=== PATIENT | female | born 1945 | race Caucasian/White ===

== ENCOUNTER 2017-12-21 07:16 | Day surgery (SDC) | payer MEDICARE, BC ==
[~2017-12-21] VITALS: Ht 160 cm; Wt 77.6 kg
[~2017-12-21 07:16] MED LIST: METF500T4 PO; OLME40TA12 PO; SIMV40TA5 PO; VITAMIN D2 PO
[2017-12-21] MEDS ORDERED: TOBRAMYCIN SULFATE 80MG/2ML 30ML ONE (07:29)
[2017-12-21] MEDS ORDERED: METHYLPREDNISOLONE SOD SUCC 40 MG/ML VIAL ONE (07:29)
[2017-12-21] MEDS ORDERED: CIPROFLOXACIN 0.3% OPHTH SOLN 2.5ML LEFTEYE ONE (08:30)
[2017-12-21] MEDS ORDERED: MIDAZOLAM HCL 2 MG/2 ML VIAL ONE (09:22)
[2017-12-21] MEDS ORDERED: PROPOFOL 200MG/20ML VIAL IV ONE (09:22)
[2017-12-21] MEDS ORDERED: FENTANYL CITRATE/PF 50MCG/ML 2ML VIAL ONE (09:22)
[2017-12-21] MEDS ORDERED: GLYCOPYRROLATE 0.2 MG/ML 2ML VIAL ONE (09:23)
[2017-12-21] MEDS ORDERED: LIDOCAINE HCL/PF 1% 10 MG/ML 5ML VIAL ONE (09:23)
[2017-12-21] MEDS ORDERED: SODIUM CHLORIDE 0.9% 1,000 ML IV ONE (09:42)
[2017-12-21] MEDS ORDERED: ONDANSETRON HCL 4MG/2ML VIAL IV PRN (09:45)
[2017-12-21] MEDS ORDERED: HYDROMORPHONE HCL/PF 2MG/ML CPJ IV PRN (09:45)
[2017-12-21] MEDS ORDERED: ACET-2708 PO (09:54)
[2017-12-21] MEDS ORDERED: CIPROFLOXACIN 0.3% OPHTH SOLN 2.5ML ONE (15:22)
[2017-12-21] MEDS ORDERED: LIDOCAINE HCL 2%/EPINEPHRINE 1:100,000 20 ML VIAL INFIL ONE (15:22)
[2017-12-21] MEDS ORDERED: BALANCED SALT IRRIG SOLN 15ML ONE (15:22)
[2017-12-21] MEDS ORDERED: NEO/POLYMYX B SULF/DEXAMETH OPHTH OINT 3.5GM ONE (15:22)
== END 2017-12-21 12:00 | disposition home or self-care (01) ==
LOC: OR 07:16
PROVIDERS: ATTEND Ophthalmology
DX: H11.002 Unspecified pterygium of left eye (principal); H10.402 Unspecified chronic conjunctivitis, left eye; L57.8 Other skin changes due to chronic exposure to nonionizing radiation; E78.2 Mixed hyperlipidemia; I10 Essential (primary) hypertension; E11.49 Type 2 diabetes mellitus with other diabetic neurological complication; E78.00 Pure hypercholesterolemia, unspecified; Z90.710 Acquired absence of both cervix and uterus; Z79.84 Long term (current) use of oral hypoglycemic drugs; Z79.899 Other long term (current) drug therapy
CPT/HCPCS: 65420; 82962; 88304; J2250; J2920; J3010; J3260; J3490; J7030; J2704